=== PATIENT | male | born 2000 | race Caucasian/White ===

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

== ENCOUNTER 2024-11-17 19:38 | Emergency (ER) | payer BC, SELFPAY ==
[2024-11-17 20:24] VITALS: BP 137/77; PULSE 74; RESP 15; TEMP 36.6; O2SAT 97; BMI 28.2
[2024-11-17 23:13] VITALS: BP 132/60; PULSE 62; O2SAT 98
[2024-11-17 23:30] VITALS: BP 127/58; PULSE 65; O2SAT 98
[2024-11-18] VITALS: BP 121/60; PULSE 56; O2SAT 98
[2024-11-18 00:30] VITALS: BP 123/58; PULSE 57; O2SAT 98
--- NOTE | 2024-11-18 00:38 | ED.BACK ---
HPI - Back Pain/Injury General Chief Complaint: Back Pain/Injury Stated Complaint: back popped while exercising-squatting Time Seen by Provider: 11/18/24 00:37 Source: patient, RN notes reviewed and old records reviewed Mode of arrival: Ambulatory Limitations: no limitations History of Present Illness HPI Narrative: 24-year-old male was squatting 155 lb felt a crack in his low back with the pain radiating to hips and knees, denies any paresthesias no incontinence. Ambulating. Patient states he had squatted down was pushing up into extension with a his legs when he felt sort of a crack or discomfort in his lower lumbar back and then a warmth on both sides but little bit more in the right. States he had paresthesias down both legs now has a little bit just down to the right knee. He denies any saddle anesthesia. No incontinence. Leg lift causes some mild discomfort on the right but no difficulty. He finds it most comfortable to be flat in his back. He states flexion at the hips or back is the most uncomfortable position. Has not had similar issues in the past. No prior surgeries no daily medications. Denies any other medical issues. No known drug allergies. No tobacco, no regular alcohol or recreational drugs. He is accompanied by his mother. He has been ambulatory afterwards. Related Data Allergies Allergy/AdvReac Type Severity Reaction Status Date / Time No Known Drug Allergies Allergy Verified 05/24/20 22:33 Review of Systems Review of Systems ROS Unobtainable: All systems reviewed & are unremarkable except as noted in HPI and below Patient History Medical History (Updated 11/18/24 @ 01:01 by Lupe Grant DO) Eyelid laceration, right Right eye injury Social History Smoking Status: Never smoker Smoking Status: Never smoker Exam Narrative Exam Narrative: GENERAL: Alert and oriented x three, mild distress HEENT: Head normocephalic, atraumatic, EOMI, pupils reactive, face symmetric, moist mucous membranes NECK: Supple, full range of motion CARDIOVASCULAR: Regular rate and rhythm without murmurs, rubs or gallops. RESPIRATORY: Breath sounds equal bilaterally, no wheezes rales or rhonchi. ABDOMEN: Soft, nontender. Normoactive bowel sounds all 4 quadrants. No guarding or rebound, rigidity, no mass : No CVA tenderness BACK: No cervical, thoracic or lumbar vertebral point tenderness. Patient has mildly decreased range of motion. Patient's gait is [antalgic/normal]. No saddle anesthesia. Muscle strength is 5/5 in lower extremities, DTRs are 2/4 and lower extremities. Dorsalis pedis and tibialis pulses are 2+ and lower extremities. Sensation is intact in the lower extremities. EXTREMITIES: Normal range of motion, no clubbing or edema. Neurovascularly intact NEUROLOGICAL: Cranial nerves II through XII grossly intact. Moving all extremities SKIN: Warm, dry, no petechiae, no rashes or lesions. Initial Vital Signs Initial Vital Signs: Vital Signs Temperature 97.9 F 11/17/24 20:24 Pulse Rate 74 11/17/24 20:24 Respiratory Rate 15 11/17/24 20:24 Blood Pressure 137/77 11/17/24 20:24 Pulse Oximetry 97 11/17/24 20:24 Oxygen Delivery Method Room Air 11/17/24 20:24 Course Orders Ordered: ED Orders 11/18/24 00:57 XR lumbar spine 2-3V Stat Vital Signs Vital signs: Vital Signs - 8 hr 11/17/24 20:24 11/17/24 23:13 11/17/24 23:13 Temperature 97.9 F Pulse Rate 74 62 Respiratory Rate 15 Blood Pressure 137/77 132/60 Pulse Oximetry 97 98 Oxygen Delivery Method Room Air 11/17/24 23:30 11/17/24 23:30 11/18/24 00:00 Temperature Pulse Rate 65 Respiratory Rate Blood Pressure 127/58 L 121/60 Pulse Oximetry 98 Oxygen Delivery Method 11/18/24 00:00 11/18/24 00:30 11/18/24 00:30 Temperature Pulse Rate 56 L 57 L Respiratory Rate Blood Pressure 123/58 L Pulse Oximetry 98 98 Oxygen Delivery Method 11/18/24 01:40 Temperature Pulse Rate 51 L Respiratory Rate 15 Blood Pressure 118/66 Pulse Oximetry 98 Oxygen Delivery Method Room Air MDM - Back Pain/Injury MDM Narrative Medical decision making narrative: L-spine x-ray no acute bony abnormality. No significant degenerative changes. Patient has a acetaminophen and ibuprofen earlier he states that was helpful. Discharge Plan Departure Patient Disposition: Home Clinical Impression: Low back pain Instructions: DI for Low Back Pain Activity Restrictions/Additional Instructions: Follow up for recheck if your symptoms are persisting over the next week. You can take acetaminophen up to a 1000 mg every 6 hours and ibuprofen up to 600 mg every 6 hours as needed for pain. Decrease your activity you can advanced your activity as tolerated slowly. You can stretch gently as tolerated. Please return if you develop fevers, rapidly worsening pain, inability to lift or move your leg, loss of sensation, any loss of bowel or bladder control, if you can not feel your groin or any other new or concerning changes. Referrals: Juan R Cardenas MD [Primary Care Provider, Medical] Stand Alone Forms: Patient Portal/API, Work Release Note
--- NOTE | 2024-11-18 00:57 | DI.RAD.S_ITS ---
PROCEDURE: XR LUMBAR SPINE 2-3V INDICATIONS: low back pain, was lifting 155lbs TECHNIQUE: 3 views of the lumbar spine were acquired. COMPARISON: None. FINDINGS: Bones: 5 [id number] vertebrae are present. There is normal bony alignment. No vertebral body compression fractures. No suspicious bony lesions. Soft tissues: Overlying bowel gas pattern is normal. No suspicious soft tissue calcifications. IMPRESSION: No acute bony abnormality. No significant degenerative changes. Dictated by: Blue Luevano M.D. on 11/18/2024 at 1:17 Approved by: Blue Luevano M.D. on 11/18/2024 at 1:18
[2024-11-18 01:40] VITALS: BP 118/66; PULSE 51; RESP 15; O2SAT 98
== END 2024-11-18 01:41 | disposition home or self-care (01) ==
PROVIDERS: Emergency Provider Emergency Medicine; PCP Pediatrics
DX: M54.50 Low back pain, unspecified (principal); M25.552 Pain in left hip; M25.551 Pain in right hip; M25.562 Pain in left knee; M25.561 Pain in right knee; Y93.B9 Activity, other involving muscle strengthening exercises
CPT/HCPCS: 72100; 99281; 99283